=== PATIENT | female | born 2000 | race Two or more races ===

== ENCOUNTER 2024-05-20 23:30 | Emergency (ER) | payer OTHER ==
[~2024-05-20] VITALS: Ht 170.2 cm; Wt 68.0 kg
[2024-05-21] MEDS ORDERED: CLINDAMYCIN PHOSPHATE 150 MG/ML (900mg) IV STA (04:40)
[2024-05-21] MEDS ORDERED: CLINDAMYCIN PHOSPHATE 150 MG/ML (900mg) ONE (04:44)
== END 2024-05-21 05:43 | disposition home or self-care (01) ==
LOC: ER 23:32
DX: L02.426 Furuncle of left lower limb (principal)
CPT/HCPCS: 96365; 99282; J3490